=== PATIENT | male | born 1980 | race Caucasian/White ===

== ENCOUNTER → 2019-08-12 | Outpatient (CLI) | payer OTHER, BC | LOC: BHSO 08:55 | DX: Z01.818 Encounter for other preprocedural examination (principal); E66.01 Morbid (severe) obesity due to excess calories; Z71.3 Dietary counseling and surveillance ==

== ENCOUNTER 2020-08-17 09:00 | Outpatient (RCR) | payer OTHER, BC | END 2020-09-20 10:14 | disposition home or self-care (01) | LOC: WSC 09:00 | DX: M54.5 Low back pain (principal); G89.29 Other chronic pain ==

== ENCOUNTER 2020-08-29 12:42 | Outpatient (RCR) | payer OTHER | END 2020-09-29 09:51 | disposition home or self-care (01) | LOC: WSOT 12:42 | DX: M25.531 Pain in right wrist (principal) ==

== ENCOUNTER 2021-03-09 07:57 | Outpatient (RCR) | payer OTHER, BC | END 2021-04-14 08:52 | disposition home or self-care (01) | LOC: WSC 07:57 | DX: M1A.09X0 Idiopathic chronic gout, multiple sites, without tophus (tophi) (principal); M46.90 Unspecified inflammatory spondylopathy, site unspecified ==

== ENCOUNTER → 2021-05-11 | Outpatient (RCR) | payer OTHER | END | disposition home or self-care (01) | LOC: MKS.ESL.PT → WSOT 02-10 10:33 → MKS.ESL.PT 05-02 09:45 | DX: Z98.890 Other specified postprocedural states (principal) ==

== ENCOUNTER 2021-08-02 09:00 | Outpatient (RCR) | payer OTHER | END 2021-08-14 | disposition home or self-care (01) | LOC: MKS.ESL.PT | DX: Z98.890 Other specified postprocedural states (principal) | CPT/HCPCS: G0283-GP ==

== ENCOUNTER 2021-11-29 14:00 | Outpatient (RCR) | payer OTHER | END 2021-12-01 | LOC: WSOT | DX: M65.4 Radial styloid tenosynovitis [de Quervain] (principal) ==